=== PATIENT | female | born 1935 | race Hispanic/Latino ===

== ENCOUNTER 2018-04-18 07:41 | Emergency (ER) | payer MEDICARE ==
[2018-04-18 07:52] VITALS: BMI 25.0
--- NOTE | 2018-04-18 08:49 | ED PDOC ---
Arrival/HPI - General Chief Complaint: Abnormal Skin Integrity Time Seen by Provider: 04/18/18 08:43 Historian: Patient - History of Present Illness Narrative History of Present Illness (Text): 04/18/18 08:45 Yu Jenkins is an 83 year old female, whose past medical history includes hypertension, who presents to the emergency department complaining of generalized rash for two days. Patient states that 2 days ago she was [place] a [place] and was exposed to poison ambar. Patient requests a shot to relieve symptoms. Patient denies any fever, chills, or any other complaints at this time. Time/Duration: < week Symptom Onset: Gradual Symptom Course: Unchanged Activities at Onset: Light Context: Other ([facility]) Past Medical History - Provider Review Nursing Documentation Reviewed: Yes - Infectious Disease Hx of Infectious Diseases: None - Tetanus Immunization Tetanus Immunization: Unknown - Reproductive Menopause: Yes - Cardiac Hx Cardiac Disorders: Yes Hx Cardiac Arrhythmia: Yes (Afib) Hx Hypertension: Yes - Pulmonary Hx Respiratory Disorders: No - Neurological Hx Neurological Disorder: No - HEENT Hx HEENT Disorder: Yes Hx Deafness: Yes (RIGHT EAR) - Renal Hx Renal Disorder: No - Endocrine/Metabolic Hx Endocrine Disorders: No - Hematological/Oncological Hx Blood Disorders: No - Integumentary Hx Dermatological Disorder: Yes (Contact Dermatitis) - Musculoskeletal/Rheumatological Hx Musculoskeletal Disorders: Yes Hx Falls: Yes Hx Unsteady Gait: No - Gastrointestinal Hx Gastrointestinal Disorders: Yes (DYSPEPSIA,CONSTIPATION) - Genitourinary/Gynecological Hx Genitourinary Disorders: No - Psychiatric Hx Psychophysiologic Disorder: No Hx Substance Use: No - Anesthesia Hx Anesthesia Reactions: No Hx Malignant Hyperthermia: No - Suicidal Assessment Feels Threatened In Home Enviroment: No Family/Social History - Physician Review Nursing Documentation Reviewed: Yes Family/Social History: No Known Family HX Smoking Status: Never Smoked Hx Alcohol Use: No Hx Substance Use: No Hx Substance Use Treatment: No Allergies/Home Meds Allergies/Adverse Reactions: Allergies No Known Allergies Allergy (Verified 01/17/17 16:07) Home Medications: Home Meds Medication Instructions Recorded Confirmed Aspirin [Aspirin EC] 81 mg PO DAILY 01/11/16 01/18/17 Tramadol HCl [Ultram] 50 mg PO BID PRN 01/11/16 01/18/17 Trazodone HCl 50 mg PO HS PRN 01/11/16 01/18/17 Metoprolol Tartrate [Lopressor] 25 mg PO BID 10/02/16 01/18/17 Apixaban [Eliquis] 5 mg PO BID 10/04/16 01/18/17 diltiaZEM [Cardizem] 180 mg PO DAILY 10/04/16 01/18/17 Furosemide [Lasix] 20 mg PO DAILY 01/18/17 01/18/17 Simvastatin 20 mg PO DAILY 01/18/17 01/18/17 Review of Systems - Physician Review All systems were reviewed & negative as marked: Yes - Review of Systems Constitutional: absent: Fevers, Night Sweats Eyes: absent: Vision Changes ENT: absent: Hearing Changes Respiratory: absent: SOB, Cough Cardiovascular: absent: Chest Pain Gastrointestinal: absent: Abdominal Pain Genitourinary Female: absent: Dysuria Musculoskeletal: absent: Arthralgias Skin: Rash (Generalized) Neurological: absent: Headache, Dizziness Endocrine: absent: Diaphoresis Physical Exam - Physical Exam Narrative Physical Exam (Text): Constitutional: No acute distress. Head: Normocephalic. Atraumatic. Eyes: PERRL. ENT: Moist mucous membranes. Neck: Supple. Cardiovascular: Regular rate. Chest: No tenderness. Respiratory: Clear to auscultation bilaterally. GI: Soft. Nontender. Nondistended. Back: No CVA tenderness. Musculoskeletal: No tenderness or swelling of extremities. Skin: Erythematous rash over the thorax and all extremities, some vesicular, no bullae. Neurologic: Alert, no focal deficit. Vital Signs Reviewed: Yes Vital Signs Temp Pulse Resp BP Pulse Ox 04/18/18 09:14 98.4 F 77 18 132/79 99 04/18/18 07:52 98.6 F 64 16 136/71 98 Temperature: Afebrile Blood Pressure: Normal Pulse: Regular Respiratory Rate: Normal Appearance: Positive for: Well-Appearing, Non-Toxic, Comfortable Pain Distress: None Mental Status: Positive for: Alert and Oriented X 3 Medical Decision Making ED Course and Treatment: Impression: 83 year old female complaining of generalized poison ambar rash for 2 days. Plan: -- Decadron Injection -- Reassess and disposition Prior Visits: Notes and results from previous visits were reviewed. Patient was last seen in the emergency department on 01/17/17 for mild chest pain. Patient was admitted to hospitalist care for further evaluation. Progress Notes: Discharged home on steroid taper. - Medication Orders Current Medication Orders: Discontinued Medications Dexamethasone (Decadron Inj) 10 mg IM STAT STA Stop: 04/18/18 08:48 Last Admin: 04/18/18 08:52 Dose: 10 mg IM Administration Charges Document 04/18/18 08:52 BAUDILIO (Rec: 04/18/18 08:52 [id number] [id number]) Injection Site MAR Injection Site Left Deltoid Charges for Administration # of IM Administrations 1 - Scribe Statement The provider has reviewed the documentation as recorded by the Scribe Chanell Aguilar Provider Scribe Attestation: All medical record entries made by the Scribe were at my direction and personally dictated by me. I have reviewed the chart and agree that the record accurately reflects my personal performance of the history, physical exam, medical decision making, and the department course for this patient. I have also personally directed, reviewed, and agree with the discharge instructions and disposition. Disposition/Present on Arrival - Present on Arrival Any Indicators Present on Arrival: No History of DVT/PE: No History of Uncontrolled Diabetes: No Urinary Catheter: No History of Decub. Ulcer: No History Surgical Site Infection Following: None - Disposition Have Diagnosis and Disposition been Completed?: Yes Diagnosis: Poison ambar dermatitis Disposition: HOME/ ROUTINE Disposition Time: 08:47 Patient Plan: Discharge Condition: STABLE Discharge Instructions (ExitCare): Poison Ambar Prescriptions: predniSONE [Prednisone] 5 tab PO DAILY #56 tab [facility] - Follow up with primary Forms: [employer] (Sudanese)
[2018-04-18 09:15] VITALS: BP 132/79; PULSE 77; RESP 18; TEMP 98.4; O2SAT 99
== END 2018-04-18 09:14 | disposition home or self-care (01) ==
LOC: ED 07:41
DX: L23.7 Allergic contact dermatitis due to plants, except food (principal); I48.91 Unspecified atrial fibrillation; I10 Essential (primary) hypertension
CPT/HCPCS: 96372; 99282; J1100